=== PATIENT | male | born 1960 | race Caucasian/White ===

== ENCOUNTER → 2016-07-05 | Outpatient (CLI) | payer MEDICARE, OTHER ==
[~2016-07-05] MED LIST: ACCURETIC 20-121 TAB PO; BACTRIM DS TAB1 EACH PO; BAYER CHEWABLE81 MG PO; CLEOCIN HCL300 M1 PO; CUBICIN IV; HYDROCODON-ACE1 EAC7 PO; IBUPROFEN800 MG PO; LEVAQUIN750 M1 PO; LEVEMIR FL100 UNIT/1 SUBQ; LEVEMIR SUBQ; LEVEMIR100 U/ML SUBQ; LIPITOR PO; LIPITOR20 MG PO; LIPITOR40 MG PO; LISINOPRIL20 MG PO; NORCO PO; NORCO1 TAB 10/3 PO; NOVOLOG100 U/ML SUBQ; NOVOLOG100 UNITS/ SUBQ; TRESIBA FL200 UNIT/1 SQ
--- NOTE | ~2016-07-05 | MR59 ---
[facility]. [facility] A Service of [facility] RADIOLOGY TEXT RESULTS PATIENT: SAGAR WONG LOCATION: [facility] : 64 UNIT #: [id number] AGE: [address]: Alondra Horvath MD SEX: M ORDER DR: [id number] [address] [address] [id number] O MR#: [id number] Acc #: [id number] NAME: SAGAR WONG : 1960 SEX: M STUDY DATE/TIME: 07/05/2016 10:27 UNIT: [facility] ROOM: STUDY DESCRIPTION: MR Foot WWo Contrast Rt Attending Physician: Tosha Horvath M.D. Referring Physician: Tosha Horvath M.D. Ordering Physician: Tosha Horvath M.D. Primary Care Physician: No Primary Care Physician MRI CENTER REPORT This report is preliminary unless electronic signature is present. EXAM MRI right forefoot without and with IV contrast, 07/05/2016. COMPARISON STUDIES Right foot radiographs 06/30/2016, 05/24/2016, 12/03/2015, and MRI right forefoot with and without contrast 10/05/2015. HISTORY Order states first metatarsal plantar neuropathic ulcer. History sheet states status post right first ray amputation 10/07/2015. Newly developed ulcer plantar side base of great toe. Gelcap marker. Marked ulcer has been present for obb-yh-oftcr weeks. No injury. Type 2 diabetic. FINDINGS There is a wound/defect in the plantar medial forefoot measuring 16 mm AP by 11 mm transverse. The wound has an underlying peripherally rim-enhancing tract measuring up 13 mm in depth (craniocaudal). The deep portion of this fistulous tract is within millimeters of the large calcific focus of bony hypertrophy which has developed plantar and lateral to the first metatarsal amputation stump. There is a large underlying zone of nonenhancing soft tissue surrounding the flexor tendons and extending for a transverse dimension of 5.4 cm towards the first metatarsal amputation site. Soft tissue also extends cranially into the second intermetatarsal space for a length of 3 cm. Findings are compatible with cellulitis and soft tissue infection with possible infectious myositis and flexor tenosynovitis. The first metatarsal stump demonstrates no evidence of marrow space infection (osteomyelitis). Infection of the large zone of hypertrophic bone plantar lateral extending from the first metatarsal periosteum is possible. There is no abscess. [facility]. [facility] A Service of [facility] RADIOLOGY TEXT RESULTS PATIENT: SAGAR WONG LOCATION: [facility] : 64 UNIT #: [id number] AGE: [address]: Alondra Horvath MD SEX: M ORDER DR: There is marrow edema of the cuneiforms and bases and shafts of the second and third metatarsals. There is new destructive change of the second tarsometatarsal joint with new cortical thickening and periostitis of the second metatarsal base and proximal shaft. There is enhancement of the midfoot in the region of the second and third MTP joints. There is abnormal signal predominating in the intermediate lateral cuneiforms and second metatarsal base. Findings could be secondary to acute neuropathic change, more likely than sequela of septic arthritis and osteomyelitis. The plantar medial forefoot wound does not appear to tract to the plantar midfoot. IMPRESSION 1. Interval first ray amputation at the level of the distal shaft of the first metatarsal since the previous MRI of 10/05/2015. 2. Interval development of a 16 x 11 mm plantar medial forefoot wound and with a 13 mm in depth fistulous/wound tract extending just medial to the flexor digitorum tendons and within millimeters of a sizable zone of hypertrophic bone which has developed off of the plantar lateral aspect of the first metatarsal stump. Infection of this area of bony hypertrophy is possible but there is no MR evidence of first metatarsal stump or shaft osteomyelitis. 3. Extensive forefoot edema with enhancement compatible with cellulitis and soft tissue infection with enhancing soft tissue extending to the mid foot, where there has been significant interval change in the appearance of the second and third tarsometatarsal joints. There is destructive change of the second TMT joint and markedly abnormal signal at the third TMT joint which could reflect development of acute neuroarthropathy of the midfoot and/or sequela of septic arthritis. Osteomyelitis of the intermediate cuneiform and second metatarsal base are possible. There is no midfoot abscess. Dictated by... Britney M. Jermaine, M.D. THIS IS AN ELECTRONICALLY VERIFIED REPORT Britney Dean M.D. at 07/08/2016 11:51 AM GINGER/moni TD: 07/07/2016 14:29 JOB #: [id number] MRI CENTER REPORT Page 1 of 1
== END | disposition home or self-care (01) ==
LOC: SMRI 09:40
DX: L97.519 Non-pressure chronic ulcer of other part of right foot with unspecified severity (principal); R60.0 Localized edema; Z89.421 Acquired absence of other right toe(s)
CPT/HCPCS: 73720; A9581

== ENCOUNTER → 2016-07-09 | Outpatient (CLI) | payer MEDICARE, OTHER ==
--- NOTE | ~2016-07-09 | EKG ---
PATIENT: SAGAR WONG UNIT #: [id number] Ventricular Rate: 72 BPM Atrial Rate: 72 BPM P-R Interval: 142 ms QRS Duration: 84 ms Q-T Interval: 370 ms QTC Calculation(Bezet): 405 ms P Saxton: 33 degrees Calculated R Saxton: 14 degrees Calculated T Saxton: 37 degrees Diagnosis Line: Normal sinus rhythm Diagnosis Line: Low voltage QRS Diagnosis Line: Otherwise normal ECG Diagnosis Line: When compared with ECG of 04-JAN-2014 12:41, Diagnosis Line: No significant change was found Diagnosis Line: Confirmed by IDA RATLIFF MD ([id number]) on 07/09/2016 Diagnosis Line: 8:10:59 PM INTERPRETING MD: EVY LEONARDO
[2016-07-09 12:28] LABS: BUN/CREATININE RATIO 18.18; CREATININE SERUM 1.1 mg/dL (0.6-1.4); GLOM FILT RATE Estimated 75.7 mL/min (>60); POTASSIUM 4.8 mmol/L (3.5-5.1)
== END | disposition home or self-care (01) ==
LOC: CAMB 10:26
PROVIDERS: Orthopaedic Surgery
DX: Z01.818 Encounter for other preprocedural examination (principal); M25.774 Osteophyte, right foot
CPT/HCPCS: 36415; 80048; 93005

== ENCOUNTER → 2016-07-13 | Day surgery (SDC) | payer MEDICARE, OTHER ==
--- NOTE | ~2016-07-13 | HP ---
Unit #: [id number] #: [id number] Patient: SAGAR WONG [id number] [address] [address] [id number] O MR#: [id number] NAME: SAGAR WONG ROOM: Age: Sex: M Admission Date: 07/13/2016 : 1960 Attending Physician: Tosha Horvath M.D. Referring Physician: Tosha Horvath M.D. Primary Care Physician: Gaby Fulton A.P.R.N. HISTORY AND PHYSICAL DATE OF ADMISSION 07/13/2016 CHIEF COMPLAINT Right foot plantar ulceration. HISTORY OF PRESENT ILLNESS The patient is a 56-year-old male with insulin-dependent diabetes, diabetic neuropathy, and previous history of right hallux and first metatarsal head amputation on 10/07/2015. The patient did relatively well until approximately two months ago when he states that he stepped on a toy at home and developed a recurrent ulceration under the residual first metatarsal mid shaft. The patient has failed to respond to conservative care. MRI failed to document osteomyelitis of the first metatarsal distal shaft, but there is obvious overgrowth of bone in this area which correlates with his ulceration. The patient will, therefore, undergo excision of this osteophyte, bone biopsy and culture. PAST MEDICAL HISTORY Remarkable for: 1. Insulin-dependent diabetes. 2. Hyperlipidemia. 3. Diabetic neuropathy. 4. Obesity. PAST SURGICAL HISTORY As noted above. HOME MEDICATIONS 1. Insulin. 2. Lipitor. ALLERGIES Penicillin. SOCIAL HISTORY The patient is a nonsmoker. He denied alcohol use. FAMILY HISTORY Stroke, colon cancer, diabetes, coronary artery disease. REVIEW OF SYSTEMS Unremarkable for fevers or chills. Unit #: [id number] #: [id number] Patient: SAGAR WONG PHYSICAL EXAMINATION HEIGHT: 5 feet 9 inches WEIGHT: 197 pounds BMI: 29 GENERAL: This is an obese male in no acute distress. HEENT: Pharynx is clear. NECK: Supple without masses. HEART: Regular sinus rhythm without murmurs or gallops. LUNGS: Clear. ABDOMEN: Soft and nontender without masses or organomegaly. RIGHT FOOT: Demonstrates a 2 cm diameter ulceration under the plantar medial arch. This is filled with granulation tissue. There is no exposed bone, tendon or joint. The hallux is absent. Pulses are intact. Sensation is decreased in a stocking distribution. Motor exam is grossly normal. DIAGNOSTIC STUDIES IMAGING: Standing x-rays show an amputation of the distal half of the first metatarsal and of the entire hallux. On the lateral view, there is an overgrowth of bone on the plantar aspect of the first metatarsal distal shaft. ADMISSION DIAGNOSIS Right foot recalcitrant plantar ulceration secondary to metatarsal osteophyte. PLAN Patient will undergo excision of about 2 to 3 cm of right first metatarsal to allow healing of this plantar wound. This procedure was described along with the risks of bleeding, infection, nerve damage, recurrent ulceration, need for further surgery in the future, prolonged recovery time, chronic infection. He understands the above risks and agrees to proceed. Dictated by Brianna Pritchett/jj TD: 07/12/2016 20:42 JOB #: [id number] Unit #: [id number] #: [id number] Patient: SAGAR WONG HISTORY AND PHYSICAL Page 1 of 1 X Alondra Horvath MD X HISTORY AND PHYSICAL
--- NOTE | ~2016-07-13 | OR ---
Unit #: [id number] #: [id number] Patient: SAGAR WONG [id number] [address] [place], [place] [address] [id number] O MR#: [id number] NAME: SAGAR WONG ROOM: Date of Procedure: 07/13/2016 Admission Date: 07/13/2016 Surgeon: Tosha Horvath M.D. : 1960 Attending Physician: Tosha Horvath M.D. Referring Physician: Tosha Horvath M.D. Primary Care Physician: Gaby Fulton A.P.R.N. OPERATIVE REPORT PREOPERATIVE DIAGNOSIS Right plantar foot neuropathic ulcer. POSTOPERATIVE DIAGNOSIS Right plantar foot neuropathic ulcer. PROCEDURE PERFORMED Right partial first metatarsal resection (88887). CUT OFF [place] M[employer] None. ANESTHESIA General. INDICATIONS FOR SURGERY The patient is a 56-year-old male with insulin-dependent diabetes and diabetic neuropathy, with a previous history of right hallux and first metatarsal head amputation on 10/07/2015. The patient did relatively well until 2 months ago when he states that he stepped on a toy and then developed a recalcitrant ulceration in the midfoot. Radiographs demonstrate regrowth of bone on the plantar aspect of the residual metatarsal shaft. MRI documents no evidence of osteomyelitis. The patient has failed to respond to 2 months of offloading and wound care. He is therefore to undergo resection of majority of his first metatarsal in order to allow healing of this wound. DESCRIPTION OF PROCEDURE The patient was taken to the operating room and placed in supine position and general anesthetic was induced. The right foot was identified as the correct operative location during the time-out procedure. The IV antibiotic protocol was followed. The right foot was then prepped and draped in usual sterile fashion. A Tegaderm was placed over the ulceration. Coban was used to exsanguinate the foot. This was left wrapped around the ankle to act as a tourniquet. The previous scar along the medial aspect of the midfoot was utilized and extended for a distance of 6 cm. The first metatarsal was then exposed subperiosteally. Baby Hohmann retractors were placed. There was a very large osteophyte on the plantar distal aspect of the residual first metatarsal mid shaft. The microsagittal saw was then used to cut the first metatarsal at the junction of the proximal 20% and distal 80% of the bone. The bone was removed and sent to Pathology for examination. Cultures were taken for Unit #: [id number] #: [id number] Patient: SAGAR WONG aerobic and anaerobic bacteria. The tourniquet was released with a total tourniquet time of 15 minutes. Bleeding was controlled with electrocautery. The deep tissues were closed with 2-0 Vicryl tyrwfu-lm-fodsy sutures. Subcutaneous tissue was closed with 2-0 Vicryl. The skin was closed with 3-0 nylon horizontal mattress sutures. The plantar ulcer was then debrided with a 15 blade. Xeroform gauze, dressing, sponges, cast padding, and Gianluca wrap were applied. The patient was then transported to the recovery room in stable condition. ESTIMATED BLOOD LOSS About 10 mL. COMPLICATIONS None. SPECIMENS Right foot deep wound cultures and right first metatarsal. Dictated by.Brianna Tavarez/nati TD: 07/13/2016 22:27 JOB #: [id number] OPERATIVE REPORT Page 1 of 1 X Alondra Horvath MD X PROCEDURE OPERATIVE NOTE
== END | disposition home or self-care (01) ==
LOC: CSUR 13:25
DX: E11.621 Type 2 diabetes mellitus with foot ulcer (principal); M25.774 Osteophyte, right foot; M89.8X7 Other specified disorders of bone, ankle and foot; L97.519 Non-pressure chronic ulcer of other part of right foot with unspecified severity; E11.40 Type 2 diabetes mellitus with diabetic neuropathy, unspecified; E11.319 Type 2 diabetes mellitus with unspecified diabetic retinopathy without macular edema; E78.5 Hyperlipidemia, unspecified; Z88.0 Allergy status to penicillin; Z79.4 Long term (current) use of insulin; Z79.899 Other long term (current) drug therapy; Z89.411 Acquired absence of right great toe; Z98.890 Other specified postprocedural states
CPT/HCPCS: 82947; 87070; 87075; 87077; 87186; 87205; 88305; 88311; J2250; J3010; J3370

== ENCOUNTER 2016-08-10 11:42 | Emergency (ER) | payer MEDICARE, OTHER ==
--- NOTE | ~2016-08-10 | US85 ---
[facility] A Service of [facility] RADIOLOGY TEXT RESULTS PATIENT: SAGAR WONG LOCATION: [facility] : [birth year] UNIT #: [id number] AGE: [address]: Aneudy Herrera MD SEX: M ORDER DR: [id number] [facility] [address] [place], [place] [address] [id number] E MR#: [id number] Acc #: [id number] NAME: SAGAR WONG : 1960 SEX: M STUDY DATE/TIME: 08/10/2016 13:09 UNIT: [facility] ROOM: STUDY DESCRIPTION: LE Veins Unilat or Ltd Stdy Attending Physician: Aneudy Herrera M.D. Ordering Physician: Aneudy Herrera M.D. Primary Care Physician: Gaby Fulton A.P.R.N. MEDICAL IMAGING REPORT This report is preliminary unless electronic signature is present EXAM Right lower extremity venous duplex 08/10/2016 HISTORY Right leg pain for 1 month. Evaluate for deep vein thrombosis. TECHNIQUE Venous ultrasound examination of the right lower extremity was performed using grayscale, spectral Doppler and color flow Doppler imaging. FINDINGS The examination is negative. There is no evidence of right lower extremity deep venous thrombus from the groin to the lower calf. Visualized greater saphenous vein is also patent. IMPRESSION Negative examination. No evidence of right lower extremity deep venous thrombosis. Dictated by... Eder Oreilly M.D. THIS IS AN ELECTRONICALLY VERIFIED REPORT Eder Oreilly M.D. at 08/11/2016 8:29 AM JOSE/raf TD: 08/10/2016 15:12 JOB #: [id number] MEDICAL IMAGING REPORT [facility] A Service of [facility] RADIOLOGY TEXT RESULTS PATIENT: SAGAR WONG LOCATION: [facility] : 64 UNIT #: [id number] AGE: [address]: Aneudy Herrera MD SEX: M ORDER DR: Page 1 of 1 COPY
--- NOTE | ~2016-08-10 | CR127 ---
[facility] A Service of [facility] RADIOLOGY TEXT RESULTS PATIENT: SAGAR WONG LOCATION: [facility] : [birth year] UNIT #: [id number] AGE: [address]: Aneudy Herrera MD SEX: M ORDER DR: [id number] [facility] [address] [facility] [place], [place] [address] [id number] E MR#: [id number] Acc #: [id number] NAME: SAGAR WONG : 1960 SEX: M STUDY DATE/TIME: 08/10/2016 12:54 UNIT: [facility] ROOM: STUDY DESCRIPTION: CR Foot Complete Min 3 View Rt Attending Physician: Aneudy Herrera M.D. Ordering Physician: Aneudy Herrera M.D. Primary Care Physician: Gaby Fulton A.P.R.N. MEDICAL IMAGING REPORT This report is preliminary unless electronic signature is present EXAM Right foot, 3 views. HISTORY Pain and swelling for 2-3 days. TECHNIQUE Three views are submitted. FINDINGS The exam shows amputation of the first digit at the proximal third of the first metatarsal. There is periostitis around site. There are marked erosive changes at the articulation of the second metatarsal with the second cuneiform. Bony elements otherwise appear intact. Patient does have a calcaneal spur and ossification at the Achilles tendon insertion. CONCLUSION 1. Amputation of the first metatarsal in its proximal third with surrounding periostitis. There is some soft tissue edema distally. 2. Advanced arthritic changes at the articulation of the base of the second metatarsal with the second cuneiform. Dictated by... Mansoor Taylor M.D. THIS IS AN ELECTRONICALLY VERIFIED REPORT Mansoor Taylor M.D. at 08/12/2016 7:14 AM KEELEY/moni TD: 08/10/2016 14:30 JOB #: [id number] [facility] A Service of [facility] RADIOLOGY TEXT RESULTS PATIENT: SAGAR WONG LOCATION: [facility] #: [id number] : [birth year] UNIT #: [id number] AGE: [address]: Aneudy Herrera MD SEX: M ORDER DR: MEDICAL IMAGING REPORT Page 1 of 1 COPY
[~2016-08-10 11:42] MED LIST changes: -BACTRIM DS TAB1 EACH PO; -LEVEMIR FL100 UNIT/1 SUBQ; -NORCO PO
[2016-08-10 12:41] LABS: BASOPHIL# 0.1 X10e3 (0-0.3); BASOPHIL% 0.8 % (0-2.5); EOSINOPHIL# 0.2 X10e3 (0-0.7); HEMATOCRIT 34.4 % (38.0-50.0); HEMOGLOBIN 11.8 gm/dL (13.0-16.0); LYMPHOCYTE# 1.4 X10e3 (1.0-3.5); LYMPHOCYTE% 12.8 % (17.0-45.0); MEAN CELL VOLUME 84.9 FL (83-96); MEAN CORPUSCULAR HGB CONC 34.2 g/dL (30-36); MEAN PLATELET VOLUME 7.3 FL (6.5-11.5); MONOCYTE# 0.8 X10e3 (0-1.0); MONOCYTE% 7.9 % (3.0-12.0); NEUTROPHIL# 8.1 X10e3 (1.5-7.1); NEUTROPHIL% 76.5 % (40-75); PLATELET COUNT 405 X10e3 (140-420); RED BLOOD COUNT 4.05 X10e (3.90-5.60); RED CELL DISTRIBUTION WIDTH 12.2 % (11.0-15.5); WHITE BLOOD COUNT 10.6 X10e3 (4.0-10.5)
[2016-08-10 12:47] LABS: DIFF IND NO
[2016-08-10 13:03] LABS: BUN/CREATININE RATIO 14.61; CALCIUM SERUM 8.9 mg/dL (8.4-10.2); CREATININE SERUM 1.3 mg/dL (0.6-1.4); GLOM FILT RATE Estimated 61.9 mL/min (>60); POTASSIUM 4.4 mmol/L (3.5-5.1)
[2016-08-12] MEDS ORDERED: BACTRIM DS TAB1 EACH PO (11:26)
[2016-08-12] MEDS ORDERED: NORCO PO (11:27)
[2016-08-12] MEDS ORDERED: LEVEMIR FL100 UNIT/1 SUBQ (11:28)
== END 2016-08-10 16:10 | disposition home or self-care (01) ==
LOC: CED 11:42
PROVIDERS: Emergency Medicine
DX: L03.115 Cellulitis of right lower limb (principal); E11.9 Type 2 diabetes mellitus without complications; Z98.890 Other specified postprocedural states; Z88.0 Allergy status to penicillin
CPT/HCPCS: 36415; 73630; 80048; 85025; 93971; 99284

== ENCOUNTER → 2016-08-17 | Day surgery (SDC) | payer MEDICARE, OTHER ==
[~2016-08-17] MED LIST changes: +BACTRIM DS TAB1 EACH PO; +LEVEMIR FL100 UNIT/1 SUBQ; +NORCO PO
--- NOTE | ~2016-08-17 | OR ---
Unit #: [id number] #: [id number] Patient: SAGAR WONG [id number] [address] [place], [place] [address] [id number] O MR#: [id number] NAME: SAGAR WONG ROOM: Date of Procedure: 08/17/2016 Admission Date: 08/17/2016 Surgeon: Tosha Horvath M.D. : 1960 Attending Physician: Tosha Horvath M.D. Primary Care Physician: Yazmin Resendez M.D. OPERATIVE REPORT PREOPERATIVE DIAGNOSIS Right fifth metatarsal osteomyelitis. POSTOPERATIVE DIAGNOSIS Right fifth metatarsal osteomyelitis. PROCEDURES PERFORMED 1. Right foot transmetatarsal amputation (23875). 2. Right percutaneous Achilles tendon lengthening (00243). ASSISTANTS Marcelo. ANESTHESIA General. INDICATIONS FOR SURGERY The patient is a 56-year-old previously poorly controlled insulin-dependent diabetic, who has undergone 3 operations on his right foot culminating in a hallux and first ray amputation. He now has osteomyelitis overlying his fifth metatarsal. He has a lateral forefoot ulcer, which extended down to the bone with exposed bone indicating that he does have clinical osteomyelitis. He is, therefore, to undergo transmetatarsal amputation and percutaneous Achilles tendon lengthening. DESCRIPTION OF PROCEDURE The patient was taken to the operating room and placed in supine position and general anesthetic was induced. The right foot was identified as the correct operative location during the time-out procedure. The IV antibiotic protocol was followed. The right foot was then prepped and draped in the usual sterile fashion. The leg was exsanguinated and the thigh tourniquet inflated to 300 mmHg. Dorsal and plantar fish-mouth incisions were made over the forefoot. Sharp dissection proceeded directly down to the bone, the second through fifth metatarsal bases were exposed with subperiosteal dissection. A microsagittal saw was used to cut the second, third, fourth, and fifth metatarsal bases maintaining the normal metatarsal parabola. The plantar flap was then sharply developed insuring that the flap was kept thick, the forefoot was then removed. Aerobic and anaerobic cultures were taken. The tourniquet was released with a total tourniquet time of 20 minutes. Bleeding was controlled with electrocautery. The deep soft tissues were Unit #: [id number] #: [id number] Patient: SAGAR WONG then closed with 2-0 Vicryl qrebzn-mg-lqppe sutures. The skin was closed with 3-0 nylon roe-exti-yqst-far sutures. A #11 knife blade was then used to perform a percutaneous Achilles tendon lengthening. The medial half of the Achilles tendon was severed percutaneously 2.5 cm proximal to the Achilles insertion. A second lateral hemisection was performed 2.5 cm proximal to the first hemisection. A third medial hemisection was performed 2.5 cm proximal to the second hemisection. The ankle was gently dorsiflexed until 10 degrees of ankle dorsiflexion was easily obtained. These wounds were closed with Steri-Strips. Xeroform gauze, dressing, sponges, cast padding, posterior fiberglass splint, and 2 Gianluca wraps were applied. The patient was then awakened in the operating room and transported to the recovery room in stable condition. ESTIMATED BLOOD LOSS 100 mL. COMPLICATIONS None. SPECIMENS Cultures and forefoot. TOURNIQUET TIME 20 minutes. Dictated byBrianna Bowers/nati TD: 08/18/2016 03:53 JOB #: [id number] OPERATIVE REPORT Page 1 of 1 X Alondra Horvath MD X PROCEDURE OPERATIVE NOTE
--- NOTE | ~2016-08-17 | HP ---
Unit #: [id number] #: [id number] Patient: SAGAR WONG [id number] [address] [address] [id number] O MR#: [id number] NAME: SAGAR WONG ROOM: Age: Sex: M Admission Date: 08/17/2016 : 1960 Attending Physician: Tosha Horvath M.D. Primary Care Physician: Yazmin Resendez M.D. HISTORY AND PHYSICAL DATE OF SURGERY 08/17/2016 CHIEF COMPLAINT Right lateral foot ulceration with underlying osteomyelitis. HISTORY OF PRESENT ILLNESS The patient is a 56-year-old male with insulin-dependent diabetes, diabetic neuropathy, previous history of right hallux and right first metatarsal head amputation who required additional resection of the first metatarsal on 07/13/2016. The patient went on to heal this wound but now has developed a lateral ulcer over his fifth metatarsal head which extends down to bone. He now has exposed bone and has clinical osteomyelitis. He is therefore admitted for transmetatarsal amputation since taking off his fifth metatarsal head would leave him with only three remaining metatarsal heads which will most certainly ulcerate in a rapid fashion. He will also have percutaneous Achilles tendon lengthening. PAST MEDICAL HISTORY 1. Insulin-dependent diabetes. 2. Diabetic neuropathy. 3. Hyperlipidemia. 4. Obesity. PAST SURGICAL HISTORY As noted above. HOME MEDICATIONS 1. Insulin. 2. Lipitor. ALLERGIES Penicillin. SOCIAL HISTORY The patient is a nonsmoker. He denies alcohol use. FAMILY HISTORY Stroke, colon cancer, diabetes, coronary artery disease. REVIEW OF SYSTEMS Unremarkable for fevers or chills. PHYSICAL EXAMINATION Unit #: [id number] #: [id number] Patient: SAGAR WONG HEIGHT: 5 feet 9 inches WEIGHT: 197 pounds BMI: 29 GENERAL: This is an obese male in no acute distress. HEENT: Pharynx is clear. NECK: Supple without masses. HEART: Regular sinus rhythm without murmurs or gallops. LUNGS: Clear. ABDOMEN: Soft and nontender without masses or organomegaly. RIGHT FOOT: Absent hallux and first metatarsal. The first metatarsal base remains. He has a 2 cm diameter ulceration overlying the lateral aspect of the fifth metatarsal head which extends down to bone. He has sensation which has decreased in a stocking distribution. Pulses are not palpable but capillary refill is normal. Motor exam is grossly intact. DIAGNOSTIC STUDIES IMAGING: Standing x-rays of the right foot demonstrate a remaining 1 cm of first metatarsal base. There is no obvious osteomyelitis of the fifth metatarsal head. ADMISSION DIAGNOSIS Right fifth metatarsal head ulceration and osteomyelitis. PLAN The patient is admitted for right foot transmetatarsal amputation and percutaneous tendon lengthening. This procedure was described along with the risks of bleeding, infection, nerve damage, need for further surgery in the future, prolonged recovery time, deep venous thrombosis, pulmonary embolism, anesthetic complications, failure for the wound to heal, and need for higher level amputation. He understands the above risks and agrees to proceed with the treatment plan. He reviewed the operative permit and signed it in our office. Dictated by Brianna Pritchett/jj TD: 08/16/2016 20:09 JOB #: [id number] Unit #: [id number] #: [id number] Patient: SAGAR WONG HISTORY AND PHYSICAL Page 1 of 1 X Alondra Horvath MD X HISTORY AND PHYSICAL
== END | disposition home or self-care (01) ==
LOC: CSUR 05:42
DX: M86.8X7 Other osteomyelitis, ankle and foot (principal); L02.611 Cutaneous abscess of right foot; E10.621 Type 1 diabetes mellitus with foot ulcer; L97.519 Non-pressure chronic ulcer of other part of right foot with unspecified severity; E10.40 Type 1 diabetes mellitus with diabetic neuropathy, unspecified; E10.319 Type 1 diabetes mellitus with unspecified diabetic retinopathy without macular edema; E78.5 Hyperlipidemia, unspecified; E66.9 Obesity, unspecified; Z68.30 Body mass index [BMI] 30.0-30.9, adult; Z88.0 Allergy status to penicillin; Z79.2 Long term (current) use of antibiotics; Z79.899 Other long term (current) drug therapy; Z89.411 Acquired absence of right great toe; Z98.890 Other specified postprocedural states
CPT/HCPCS: 82947; 87070; 87075; 87077; 87186; 87205; 88305; 88307; 88311; J2250; J2270; J2405; J3010; J3370

== ENCOUNTER → 2016-10-04 | Outpatient (CLI) | payer MEDICARE, OTHER ==
--- NOTE | ~2016-10-04 | US85 ---
[facility] A Service [facility] RADIOLOGY TEXT RESULTS PATIENT: SAGAR WONG LOCATION: [facility] : 64 UNIT #: [id number] AGE: [address]: Gaby Fulton SEX: M ORDER DR: [id number] [place] [id number] O MR#: [id number] Acc #: [id number] NAME: SAGAR WONG : 1960 SEX: M STUDY DATE/TIME: 10/04/2016 11:37 UNIT: [facility] ROOM: STUDY DESCRIPTION: [facility] Unil or [facility] Stdy Attending Physician: Gaby Fulton A.P.R.N. Referring Physician: Gaby Fulton A.P.R.N. Ordering Physician: Gaby Fulton A.P.R.N. Primary Care Physician: Yazmin Resendez M.D. MEDICAL IMAGING REPORT This report is preliminary unless electronic signature is present. EXAM Right lower extremity venous duplex 10/04/2016 HISTORY Right lower extremity pain and edema for 2 weeks. Evaluate for deep vein thrombosis. TECHNIQUE Venous ultrasound examination of the right lower extremity was performed using grayscale, spectral Doppler and color flow Doppler imaging. FINDINGS The examination is negative. There is no evidence of right lower extremity deep venous thrombus from the groin to the lower calf. Visualized greater saphenous vein is also patent. IMPRESSION Negative examination. No evidence of right lower extremity deep venous thrombosis. Dictated by... Eder Oreilly M.D. THIS IS AN ELECTRONICALLY VERIFIED REPORT Eder Oreilly M.D. at 10/05/2016 7:14 AM KRT/pcl TD: 10/04/2016 18:26 JOB #: [id number] [facility] A Service [facility] RADIOLOGY TEXT RESULTS PATIENT: SAGAR WONG LOCATION: [facility] : 64 UNIT #: [id number] AGE: [address]: Gaby Fulton SEX: M ORDER DR: MEDICAL IMAGING REPORT Page 1 of 1
== END | disposition home or self-care (01) ==
LOC: SNIV 11:30
DX: R60.0 Localized edema (principal); M79.661 Pain in right lower leg
CPT/HCPCS: 93971